=== PATIENT | female | born 1965 | race Two or more races ===

== ENCOUNTER 2020-12-26 12:33 | Emergency (ER) | payer OTHER ==
[~2020-12-26] VITALS: Ht 149.9 cm; Wt 77.1 kg
[2020-12-26] MEDS ORDERED: KETO10TA2 PO (17:17)
[2020-12-26] MEDS ORDERED: URIN D.S. TABL1 EACH PO (17:17)
[2020-12-26] MEDS ORDERED: ACETAMINOPHEN500 M1 (17:18)
== END 2020-12-26 17:44 ==
LOC: ER 12:33
DX: N21.9 Calculus of lower urinary tract, unspecified (principal); Z03.818 Encounter for observation for suspected exposure to other biological agents ruled out